=== PATIENT | female | born 1960 | race African-American/Black ===

== ENCOUNTER 2017-01-15 07:52 | Outpatient (CLI) | payer OTHER ==
[2017-01-15 08:56] LABS: ANION GAP 11.8 (8-16); CALCIUM 8.5 mg/dL (8.5-10.1); CARBON DIOXIDE 31.2 mmol/L (21-32); CREATININE 0.9 mg/dL (0.6-1.3)
[2017-01-15 09:36] LABS: FREE T4 (FREE THYROXINE) 1.03 ng/dL (0.76-1.46); THYROID STIMULATING HORMONE 1.22 uIU/mL (0.34-3.76)
[2017-01-16 15:27] LABS: HEMOGLOBIN A1C 6.3 % (4.8-5.6)
== END 2017-01-15 19:49 | disposition home or self-care (01) ==
LOC: MLB 07:52
PROVIDERS: ATTEND Family Medicine Geriatric Medicine
DX: M72.2 Plantar fascial fibromatosis (principal); M79.671 Pain in right foot; I10 Essential (primary) hypertension; E11.9 Type 2 diabetes mellitus without complications; Z13.29 Encounter for screening for other suspected endocrine disorder
CPT/HCPCS: 36415; 73630; 80048; 83036; 84439; 84443

== ENCOUNTER 2017-02-06 08:41 | Outpatient (CLI) | payer OTHER | END 2017-02-06 20:21 | disposition home or self-care (01) | LOC: MRD 08:41 | PROVIDERS: ATTEND Family Medicine Geriatric Medicine | DX: M77.32 Calcaneal spur, left foot (principal); E11.9 Type 2 diabetes mellitus without complications | CPT/HCPCS: 73630 ==

== ENCOUNTER 2017-11-14 16:24 | Emergency (ER) | payer OTHER ==
[~2017-11-14] VITALS: Ht 162.6 cm; Wt 148.0 kg
[2017-11-14 16:30] VITALS: BP 160/85
--- NOTE | 2017-11-14 16:30 | NUR ---
PATIENT PRESENTS TO ED WITH C/O DIZZINESS AND NAUSEA . PT STATES SHE HAS BEEN HAVING THE URGE TO VOMIT BUT IS UNABLE . SKIN IS PINK/WARM/DRY; AAOX4 WITH EVEN AND STEADY GAIT; LUNGS CLEAR BL; HR EVEN AND REGULAR; PT DENIES ANY FEVER, CP, SOB, OR COUGH AT THIS TIME; PATIENT STATES PAIN OF 0/10 AT THIS TIME; VSS; PATIENT POSITIONED FOR COMFORT; HOB ELEVATED; BEDRAILS UP X2; BED DOWN. ER MD MADE AWARE OF PT STATUS.
[2017-11-14 17:10] LABS: BASOPHILS # (AUTO) 0.4 K/uL (0.00-0.22); BASOPHILS % (AUTO) 3.6 % (0.0-2.0); EOSINOPHILS # (AUTO) 0.1 K/uL (0-0.4); EOSINOPHILS % (AUTO) 1.4 % (0.0-4.0); HEMOGLOBIN 12.1 g/dL (12.0-16.0); LYMPHOCYTES # (AUTO) 2.5 K/uL (2.5-16.5); MEAN CORPUSCULAR HEMOGLOBIN 28 pg (27-31); MEAN CORPUSCULAR HGB CONC 32 g/dL (33-37); MEAN CORPUSCULAR VOLUME 88 fL (80-94); MONOCYTES # (AUTO) 0.8 K/uL (0.8-1.0); NEUTROPHILS # (AUTO) 6.4 K/uL (1.8-7.7); PLATELET COUNT (AUTO) 295 K/uL (140-450); RED CELL DISTRIBUTION WIDTH 13.8 % (11.6-13.7); WHITE BLOOD COUNT (AUTO) 10.2 K/uL (4.8-10.8)
[2017-11-14 17:13] LABS: APPEARANCE,URINE CLEAR (CLEAR); BILIRUBIN,URINE NEGATIVE (NEGATIVE); BLOOD, URINE NEGATIVE (NEGATIVE); COLOR,URINE YELLOW (YELLOW); LEUKOCYTE ESTERASE ,URINE NEGATIVE (NEGATIVE); NITRITE, URINE NEGATIVE (NEGATIVE); UGLUCOSE NEGATIVE (NEGATIVE)
[2017-11-14 17:27] LABS: ALBUMIN 3.2 g/dL (3.4-5.0); ANION GAP 15.4 (8-16); CARBON DIOXIDE 26.4 mmol/L (21-32); CREATININE 0.8 mg/dL (0.6-1.3); POTASSIUM 3.8 mmol/L (3.5-5.1); TOTAL BILIRUBIN 0.3 mg/dL (0.0-1.0)
[2017-11-14] MEDS ORDERED: MECLIZINE 25 MG TAB PO ONE (18:20)
--- NOTE | 2017-11-14 19:15 | NUR ---
ASSUMED CARE OF PT
[2017-11-14 20:36] VITALS: BP 132/76
== END 2017-11-14 19:47 | disposition home or self-care (01) ==
LOC: MED 16:24
DX: E11.9 Type 2 diabetes mellitus without complications (principal); I10 Essential (primary) hypertension
CPT/HCPCS: 36415; 80053; 81003; 81025; 84484; 85025; 93005; 99285; J8597

== ENCOUNTER 2017-11-15 08:57 | Outpatient (CLI) | payer OTHER ==
[2017-11-15 09:27] LABS: BASOPHILS # (AUTO) 0.5 K/uL (0.00-0.22); BASOPHILS % (AUTO) 4.9 % (0.0-2.0); EOSINOPHILS # (AUTO) 0.2 K/uL (0-0.4); EOSINOPHILS % (AUTO) 2.2 % (0.0-4.0); HEMATOCRIT 39.5 % (36-48); HEMOGLOBIN 12.6 g/dL (12.0-16.0); LYMPHOCYTES # (AUTO) 3.5 K/uL (2.5-16.5); LYMPHOCYTES % (AUTO) 33.6 % (20.5-51.1); MEAN CORPUSCULAR HEMOGLOBIN 28 pg (27-31); MEAN CORPUSCULAR HGB CONC 32 g/dL (33-37); MEAN CORPUSCULAR VOLUME 88 fL (80-94); MONOCYTES # (AUTO) 1.2 K/uL (0.8-1.0); MONOCYTES % (AUTO) 11.2 % (1.7-9.3); NEUTROPHILS # (AUTO) 4.9 K/uL (1.8-7.7); NEUTROPHILS % (AUTO) 48.1 % (42.2-75.2); PLATELET COUNT (AUTO) 331 K/uL (140-450); RED BLOOD CELL COUNT(AUTO) 4.51 MIL/uL (4.20-5.40); RED CELL DISTRIBUTION WIDTH 13.7 % (11.6-13.7); WHITE BLOOD COUNT (AUTO) 10.3 K/uL (4.8-10.8)
[2017-11-15 09:49] LABS: ALBUMIN 3.4 g/dL (3.4-5.0); CARBON DIOXIDE 28.8 mmol/L (21-32); CHOL/HDL RATIO 2.4 (1-4.5); CREATININE 0.9 mg/dL (0.6-1.3); POTASSIUM 3.8 mmol/L (3.5-5.1); THYROID STIMULATING HORMONE 0.59 uIU/mL (0.34-3.74); TOTAL BILIRUBIN 0.5 mg/dL (0.0-1.0)
[2017-11-15 12:44] LABS: APPEARANCE,URINE CLEAR (CLEAR); BILIRUBIN,URINE NEGATIVE (NEGATIVE); BLOOD, URINE NEGATIVE (NEGATIVE); COLOR,URINE YELLOW (YELLOW); LEUKOCYTE ESTERASE ,URINE NEGATIVE (NEGATIVE); NITRITE, URINE NEGATIVE (NEGATIVE); UGLUCOSE NEGATIVE (NEGATIVE)
[2017-11-16 12:22] LABS: MICROALBUMIN, UR RANDOM 18.3 ug/mL (Not Estab.)
== END 2017-11-15 20:51 | disposition home or self-care (01) ==
LOC: MLB 08:57
PROVIDERS: ATTEND Family Medicine Geriatric Medicine
DX: Z13.21 Encounter for screening for nutritional disorder (principal); Z13.0 Encounter for screening for diseases of the blood and blood-forming organs and certain disorders involving the immune mechanism; Z13.29 Encounter for screening for other suspected endocrine disorder; I10 Essential (primary) hypertension; E11.9 Type 2 diabetes mellitus without complications; Z87.892 Personal history of anaphylaxis; M25.511 Pain in right shoulder
CPT/HCPCS: 36415; 72050; 73030; 80053; 81003; 82043; 83036; 84443; 85025

== ENCOUNTER 2018-10-15 06:59 | Outpatient (CLI) | payer OTHER ==
[2018-10-16 08:12] LABS: MICROALBUMIN, UR RANDOM 4.4 ug/mL (Not Estab.)
== END 2018-10-15 20:58 | disposition home or self-care (01) ==
LOC: MLB 06:59
PROVIDERS: ATTEND Family Medicine Geriatric Medicine
DX: Z12.11 Encounter for screening for malignant neoplasm of colon (principal); E11.9 Type 2 diabetes mellitus without complications; I10 Essential (primary) hypertension
CPT/HCPCS: 36415; 82043; 83036

== ENCOUNTER 2020-11-02 15:41 | Emergency (ER) | payer OTHER ==
[~2020-11-02] VITALS: Ht 162.6 cm; Wt 142.9 kg
[2020-11-02 15:51] VITALS: BP 170/97
--- NOTE | 2020-11-02 16:30 | NUR ---
60 YEAR OLD FEMALE COMPLAINS OF RIGHT LOWER LEG SWELLING X 4 DAYS. PT LEG IS WITH PITTING EDEMA +2, CAP REFILL <3 SEC, PEDAL PULSE +2. PT AOX4, BREATHING EVEN AND UNLABORED, SKIN WARM AND DRY. BED IN LOWEST POSITION, LOCKED, BED RAIL UPX1. PMH - DM2, HTN ALLERGIES - NKA
[2020-11-02 17:26] LABS: BASOPHILS # (AUTO) 0.1 K/uL (0.00-0.22); BASOPHILS % (AUTO) 0.7 % (0.0-2.0); EOSINOPHILS # (AUTO) 0.1 K/uL (0-0.4); EOSINOPHILS % (AUTO) 1.6 % (0.0-4.0); HEMOGLOBIN 12.5 g/dL (12.0-16.0); LYMPHOCYTES # (AUTO) 1.7 K/uL (2.5-16.5); LYMPHOCYTES % (AUTO) 19.9 % (20.5-51.1); MEAN CORPUSCULAR HEMOGLOBIN 28 pg (27-31); MEAN CORPUSCULAR HGB CONC 32 g/dL (33-37); MEAN CORPUSCULAR VOLUME 86.4 fL (80-94); MONOCYTES # (AUTO) 0.9 K/uL (0.8-1.0); MONOCYTES % (AUTO) 10.8 % (1.7-9.3); NEUTROPHILS # (AUTO) 5.7 K/uL (1.8-7.7); PLATELET COUNT (AUTO) 302 K/uL (140-450); RED BLOOD CELL COUNT(AUTO) 4.51 MIL/uL (4.20-5.40); RED CELL DISTRIBUTION WIDTH 14.1 % (11.6-13.7); WHITE BLOOD COUNT (AUTO) 8.5 K/uL (4.8-10.8)
[2020-11-02 17:41] LABS: ALBUMIN 3.1 g/dL (3.4-5.0); ANION GAP 14.1 (8-16); CARBON DIOXIDE 27.2 mmol/L (21-32); CREATININE 0.8 mg/dL (0.6-1.3); POTASSIUM 4.3 mmol/L (3.5-5.1); TOTAL BILIRUBIN 0.5 mg/dL (0.0-1.0)
[2020-11-02 18:13] VITALS: BP 159/94
--- NOTE | 2020-11-02 18:15 | NUR ---
Patient discharged with v/s stable. Written and verbal after care instructions given and explained. Patient verbalized understanding. Ambulatory with steady gait. All questions addressed prior to discharge. Advised to follow up with PMD.
== END 2020-11-02 18:13 | disposition home or self-care (01) ==
LOC: MED 15:41
DX: M79.661 Pain in right lower leg (principal); R60.0 Localized edema; E11.9 Type 2 diabetes mellitus without complications; I10 Essential (primary) hypertension; Z98.890 Other specified postprocedural states
CPT/HCPCS: 36415; 80053; 83880; 85025; 93971; 99284

== ENCOUNTER 2020-11-21 12:02 | Emergency (ER) | payer OTHER ==
[~2020-11-21] VITALS: Ht 165.1 cm; Wt 138.8 kg
[2020-11-21 12:07] VITALS: BP 152/82
--- NOTE | 2020-11-21 12:18 | NUR ---
60 YO F BIB SELF FOR C/C OF 10/10 R FOOT/LOWER LEG PAIN DESCRIBED BURNING/CRAMPING PAIN. FOOT IS DARK AND WARM TO TOUCH, NO SWELLING VISUALIZED. PT WAS SEEN LAST MONTH FOR THIS AND DX WITH CELULITIS AND GIVEN A RX OF KEFLEX WHICH SHE FINISHED YESTERDAY WITH NO RELIEF. PT HAD AN ULTRASOUND WHICH WAS NEGATIVE FOR DVTS ON LAST VISIT. PT AMBULATES WITH CANE. BED LOCKED AND IN LOWEST POSITION. SIDE RAILS X1. MED HX: DM2, HTN, CELLULITS RX: METFORMIN, DM2, HTN Addendum: 11/21/20 at 1224 by [email or web address] 60 YO F BIB SELF FOR C/C OF 10/10 R FOOT/LOWER LEG PAIN DESCRIBED BURNING/CRAMPING PAIN. FOOT IS DARK AND WARM TO TOUCH, NO SWELLING VISUALIZED. PT WAS SEEN LAST MONTH FOR THIS AND DX WITH CELULITIS AND GIVEN A RX OF KEFLEX WHICH SHE FINISHED YESTERDAY WITH NO RELIEF. PT HAD AN ULTRASOUND WHICH WAS NEGATIVE FOR DVTS ON LAST VISIT. PT AMBULATES WITH CANE. BED LOCKED AND IN LOWEST POSITION. SIDE RAILS X1. MED HX: DM2, HTN, CELLULITS RX: METFORMIN, LOSARTAN, ATENOLOL
--- NOTE | 2020-11-21 12:43 | NUR ---
Dr García at bedside examining patient.
[2020-11-21 13:30] LABS: BASOPHILS # (AUTO) 0.1 K/uL (0.00-0.22); BASOPHILS % (AUTO) 0.7 % (0.0-2.0); EOSINOPHILS # (AUTO) 0.3 K/uL (0-0.4); EOSINOPHILS % (AUTO) 3.4 % (0.0-4.0); HEMATOCRIT 38.1 % (36-48); HEMOGLOBIN 12.2 g/dL (12.0-16.0); LYMPHOCYTES # (AUTO) 2.3 K/uL (2.5-16.5); LYMPHOCYTES % (AUTO) 22.7 % (20.5-51.1); MEAN CORPUSCULAR HEMOGLOBIN 27 pg (27-31); MEAN CORPUSCULAR HGB CONC 32 g/dL (33-37); MEAN CORPUSCULAR VOLUME 84.9 fL (80-94); MONOCYTES # (AUTO) 1.1 K/uL (0.8-1.0); MONOCYTES % (AUTO) 11.4 % (1.7-9.3); NEUTROPHILS # (AUTO) 6.1 K/uL (1.8-7.7); NEUTROPHILS % (AUTO) 61.8 % (42.2-75.2); PLATELET COUNT (AUTO) 329 K/uL (140-450); RED BLOOD CELL COUNT(AUTO) 4.48 MIL/uL (4.20-5.40); RED CELL DISTRIBUTION WIDTH 13.5 % (11.6-13.7)
[2020-11-21 13:41] LABS: PROTHROMBIN TIME 10.4 secs (10.8-13.4)
[2020-11-21 13:43] LABS: ALBUMIN 3.1 g/dL (3.4-5.0); ANION GAP 11.7 (8-16); CARBON DIOXIDE 27.3 mmol/L (21-32); CREATININE 0.8 mg/dL (0.6-1.3); TOTAL BILIRUBIN 0.4 mg/dL (0.0-1.0)
--- NOTE | 2020-11-21 13:45 | NUR ---
RAD AT BEDSIDE
--- NOTE | 2020-11-21 14:18 | NUR ---
PT RETURNED FROM [facility]IA [facility]
[2020-11-21 14:40] LABS: BILIRUBIN,URINE NEGATIVE (NEGATIVE); BLOOD, URINE NEGATIVE (NEGATIVE); COLOR,URINE YELLOW (YELLOW); LEUKOCYTE ESTERASE ,URINE NEGATIVE (NEGATIVE); NITRITE, URINE NEGATIVE (NEGATIVE); PH,URINE 5.5 (5.0-9.0); UGLUCOSE NEGATIVE (NEGATIVE)
[2020-11-21 14:50] LABS: APPEARANCE,URINE CLEAR (CLEAR)
[2020-11-21] MEDS ORDERED: MORPHINE SULFATE 2 MG/ML SYR IVP ONE (14:50)
[2020-11-21] MEDS ORDERED: VANCOMYCIN 1,000 MG in DEXTROSE 5% 250 ML IV ONE (14:50)
[2020-11-21] MEDS ORDERED: VANCOMYCIN 1,000 MG VIAL ONE (14:56)
--- NOTE | 2020-11-21 15:53 | NUR ---
PT ASLEEP IN BED. EQUAL CHEST RISE AND FALL. BED LOCKED AND IN LOWEST POSITION. SIDE RAILS X1. 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
[2020-11-21 16:45] VITALS: BP 165/49
--- NOTE | 2020-11-21 16:45 | NUR ---
Patient discharged with v/s stable. Written and verbal after care instructions given and explained. Patient alert, oriented and verbalized understanding of instructions. Ambulatory with steady gait. All questions addressed prior to discharge. ID band removed. Patient advised to follow up with PMD. Rx of TRAMADOL, MOTRIN, CLINDAMYCIN, BACTRIM given. Patient educated on indication of medication including possible reaction and side effects. Opportunity to ask questions provided and answered.
== END 2020-11-21 16:45 | disposition home or self-care (01) ==
LOC: MED 12:02
DX: L03.115 Cellulitis of right lower limb (principal); R60.0 Localized edema; E11.9 Type 2 diabetes mellitus without complications; I10 Essential (primary) hypertension
CPT/HCPCS: 36415; 71045; 73700; 80053; 81003; 83605; 83880; 84484; 85025; 85610; 85730; 87040; 93005; 96365; 96375; 99285; J2270; J3370